=== PATIENT | male | born 1980 | race Caucasian/White ===

== ENCOUNTER 2021-12-12 21:08 | Inpatient (IN) | payer MEDICARE, MEDICAID, OTHER, SELFPAY ==
[~2021-12-12] VITALS: Ht 175.3 cm; Wt 113.4 kg
[2021-12-12 21:08] VITALS: BP 133/79
--- NOTE | 2021-12-12 21:09 | NUR ---
biba taken to bed #6
--- NOTE | 2021-12-12 21:10 | NUR ---
JOYCE FERRARO AT BEDSIDE. 5150 HOLD WRITTEN
[2021-12-12] MEDS ORDERED: ACETAMINOPHEN EXTRA STRENGTH 500 MG TAB PO ONE (21:30)
--- NOTE | 2021-12-12 21:30 | NUR ---
PT'S BELONGINGS COLLECTED AND TAKEN TO HOSPITAL SAFE BY SECURITY
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
--- NOTE | 2021-12-12 22:05 | NUR ---
Patient appears to be resting comfortably in bed. Vital Signs within normal limits. Respirations even and unlabored. PT HOB ELEVATED. PT ACTING APPROPRIATE
--- NOTE | 2021-12-12 22:10 | NUR ---
Dr. Vanegas examining patient.
[2021-12-12 22:16] LABS: BASOPHILS % (AUTO) 0.3 % (0.0-2.0); EOSINOPHILS # (AUTO) 0.1 K/uL (0-0.4); HEMATOCRIT 35.2 % (36-52); HEMOGLOBIN 11.5 g/dL (12.0-18.0); LYMPHOCYTES # (AUTO) 1.7 K/uL (2.0-11.5); LYMPHOCYTES % (AUTO) 15.7 % (20.5-51.1); MEAN CORPUSCULAR HEMOGLOBIN 28 pg (27-31); MEAN CORPUSCULAR HGB CONC 33 g/dL (33-37); MEAN CORPUSCULAR VOLUME 84.2 fL (80-94); MONOCYTES # (AUTO) 0.8 K/uL (0.8-1.0); NEUTROPHILS # (AUTO) 8.4 K/uL (1.8-7.7); PLATELET COUNT (AUTO) 486 K/uL (140-450); RED BLOOD CELL COUNT(AUTO) 4.18 MIL/uL (4.20-6.10); RED CELL DISTRIBUTION WIDTH 14.5 % (11.6-13.7)
[2021-12-12 22:27] LABS: ALBUMIN 3.5 g/dL (3.4-5.0); ASPARTATE AMINOTRANSFERASE 30 U/L (15-37); CARBON DIOXIDE 26.7 mmol/L (21-32); CHLORIDE 104 mmol/L (98-107); GFR ARICAN-AMERICAN 105 mL/min (>90); GLUCOSE 101 mg/dL (74-106); POTASSIUM 3.7 mmol/L (3.5-5.1); SODIUM SERUM 143 mmol/L (136-145); TOTAL BILIRUBIN 0.8 mg/dL (0.0-1.0); UREA NITROGEN, BLOOD 23 mg/dL (7-18)
[2021-12-12 22:33] LABS: ACETAMINOPHEN < 0.5 ug/ml (10-30); SALICYLATE < 2.8 mg/dL (2.8-20.0)
--- NOTE | 2021-12-12 23:53 | NUR ---
COLLECTED EARL AND NOVEL. HANDED TO NIKA . UNABLE TO COLLECT URINE SAMPLE. PROVIDED PT WATER
--- NOTE | 2021-12-13 | NUR ---
Patient appears to be resting comfortably in bed. eyes closed . Vital Signs within normal limits. Respirations even and unlabored.
--- NOTE | 2021-12-13 01:10 | NUR ---
PT SLEEPING IN BED. NO URINE OUTPUT YET
--- NOTE | 2021-12-13 02:20 | NUR ---
PT LYING SUPINE ON BED. HOB RAISED TO SEMI FOWLERS. PT SLEEPING WITH EYES CLOSED. NO HOMICIDA THOUGHTS AT THIS TIME.
--- NOTE | 2021-12-13 02:46 | NUR ---
PT AMBULATED TO BATHROOM WITH WALKER.
[2021-12-13 03:38] LABS: BARBITURATE, URINE NEGATIVE ng/ml (NEG <=200); BENZODIAZEPINE, URINE NEGATIVE ng/mL (NEG <=200)
[2021-12-13 03:39] LABS: CANNABINOID, URINE POSITIVE ng/mL (NEG <=50); COCAINE, URINE NEGATIVE ng/mL (NEG <=300); OPIATE, URINE NEGATIVE ng/mL (NEG <=2000); PHENCYCLIDINE SCREEN,URINE NEGATIVE ng/mL (NEG <=25)
--- NOTE | 2021-12-13 04:17 | NUR ---
pt growing increasingly agitated. pt spilled urine all over floor. pt is cursing and yelling. speaking to himself
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
[2021-12-13] MEDS ORDERED: LORazepam 2 MG/ML VIAL IM ONE (04:20)
[2021-12-13] MEDS ORDERED: HALOPERIDOL IM 5 MG/ML VIAL IM ONE (04:20)
--- NOTE | 2021-12-13 04:23 | NUR ---
pt aggresive to self. pt told dr she better take that 5150 hold off or else things are going to get bad. pt cussing at doctor. pt threatens that he is homicidal.
--- NOTE | 2021-12-13 04:27 | NUR ---
security at bedside to give shot. pt allowed nurses to give shot. pt did not put up fight.
--- NOTE | 2021-12-13 05:00 | NUR ---
PT SLEEPING QUIETLY. HOB ELEVATED. VSS. RESPIRATIONS EVEN AND UNLABORED
--- NOTE | 2021-12-13 07:05 | NUR ---
Patient appears to be resting comfortably in bed. Vital Signs within normal limits. Respirations even and unlabored.
--- NOTE | 2021-12-13 07:18 | NUR ---
Pt report given to TRIPP NAQVI. Transfer of care at this time.
--- NOTE | 2021-12-13 07:19 | NUR ---
REPORT RECEIVED FROM TRIPP LUBIN FOR PATIENT CONTINUITY OF CARE.
--- NOTE | 2021-12-13 07:30 | NUR ---
PATIENT SLEEPING AT BEDSIDE, SAFETY PRECAUTIONS PUT INTO PLACE. WILL CONTINUE TO MONITOR.
--- NOTE | 2021-12-13 08:24 | NUR ---
PT BEING EVALUATED BY TELEPSYCH AT THIS TIME.
--- NOTE | 2021-12-13 08:37 | NUR ---
PATIENT EATING BREAKFAST AT BEDSIDE.
[2021-12-13] MEDS: PERPHENAZINE 2 MG TAB PO SCH (10:03)
[2021-12-13] MEDS ORDERED: ACETAMINOPHEN 325 MG TAB PO PRN (11:05)
[2021-12-13] MEDS ORDERED: MAGNESIUM OXIDE 400 MG TAB PO PRN (11:05)
[2021-12-13] MEDS ORDERED: POTASSIUM CHLORIDE 10 MEQ TABER PO PRN (11:05)
[2021-12-13] MEDS ORDERED: ONDANSETRON 4 MG/2 ML VIAL IM/IVP PRN (11:05)
[2021-12-13] MEDS ORDERED: SODIUM PHOS / POTASSIUM PHOS 1 PKT PDR PO PRN (11:05)
[2021-12-13] MEDS ORDERED: DOCUSATE SODIUM 100 MG GELCAP PO PRN (11:05)
--- NOTE | 2021-12-13 11:13 | NUR ---
DR ANTONIO EVALUATING PATIENT AT BEDSIDE.
--- NOTE | 2021-12-13 11:20 | NUR ---
Patient will be admitted to care of DR ANTONIO. Admited to MED SURG. Will go to room 109 B. Belongings list completed. Report to THEE PRICE.
--- NOTE | 2021-12-13 11:21 | NUR ---
The patient's care was reviewed and supervised by Yashira Galvan RN.
[2021-12-13 12:16] LABS: MAGNESIUM 2.4 mg/dL (1.8-2.4); PHOSPHORUS 4.5 mg/dL (2.5-4.9)
[2021-12-13 12:39] VITALS: BP 126/82
--- NOTE | 2021-12-13 12:44 | NUR ---
DC PLANNING PATIENT IS A 41 YEAR OLD MALE ADMITTED ON 12/12/2021 AT [facility]/ED ON A 5150 HOLD DUE TO DTO AND HOMICIDAL IDEATIONS. SW ATTEMPTED TO MET WITH PATIENT TO DO ASSESSMENT, DISCUSS AND GATHER PATIENT'S COLLATERAL INFORMATION. PATIENT INITIALLY WAS AWAKE AND ALERT ABLE TO FOLLOW SOME COMMANDS; HOWEVER, UNWILLING TO PROVIDE ANY ANSWERS TO ANY QUESTIONS MADE TO HIM BY THESE CUTTING MACHINE OPERATOR. (SOME OF THE RESPONSES INCLUDE UNAPPROPRIATED, SCRAMBLE WORDS OR EVEN INCOHERENT RESPONSES, IF DISRUPTIVE THOUGHTS PROCESS IS OCCURRING WHEN HE RESPONDED. PATIENT THEN GETS EASILY CONFUSED AND IRRITATED STATED " IM TIRED IM GOING TO SLEEP NOW" DONT TALK TO ME ANYMORE " SW LEFT THE ROOM THEN AND A SITTER BY SIDE IN ROOM 109-B. SW WAS UNABLE TO COMPLETE ASSESSMENT WITH PATIENT AND WILL BE CONTACTING LUIS Handley TO SEEK FOR ASSISTANCE ON ATTEMPTING TO CONTACT ANY PATIENT'S FAMILY MEMBER SW WILL FOLLOW UP NEEDED. Addendum: 12/13/21 at 1345 by Pattie Pitts DC PLANNING SW CALL [facility] AT TO FIND STATUS ON PSCHY PLACEMENT SEARCH FOR PATIENT. SPOKE TO ART WHO STATED THAT THEIR FAX MACHINE WAS NOT WORKING SINCE 12/11/2021 THEREFORE THEY HAVE NOT RECEIVED PATIENT'S PACKET YET. ESE INFORMED THEM THAT A CLINICAL PACKET WAS SEND YESTERDAY HOWEVER; THESE CUTTING MACHINE OPERATOR WILL SEND ANOTHER ONE TODAY AND REQUESTED [employer] FAX NUMBER TO MAKE SURE THEY RECEIVED CLINICAL PACKET AND PLACEMENT SEARCH BEGINS PARAS. ART AGREED AND PROVIDED FAX NUMBERS. ESE FAXED PATIENT'S CLINICAL PACKETS AT [phone] AND WITH COMPLETED CONFIRMATION AT ABOUT 13:45. SW/CM WILL FOLLOW UP NEEDED.
--- NOTE | 2021-12-13 14:03 | NUR ---
Packet faxed to: [facility] [address] Isabel Champagne
--- NOTE | 2021-12-13 15:38 | NUR ---
PATIENT HAS BEEN SCREENED AND CATEGORIZED LOW NUTRITION RISK. PATIENT WILL BE SEEN WITHIN 7 DAYS OF ADMISSION. 12/19/[address]
[2021-12-13 16:00] VITALS: BP 132/88
--- NOTE | 2021-12-13 18:30 | NUR ---
PT SIGNED ANGIE FOR MEDICAL DOCUMENTS FROM [facility]. FAXED OVER APPROPRIATE DOCUMENTS AND AWAITING HEALTH RECORDS. WILL ENDORSE TO MANAGER UNIVERS[employer].
--- NOTE | 2021-12-13 19:30 | NUR ---
RECEIVED PATIENT FROM AM NURSE FOR CONTINUITY OF CARE,PATIENT IS STABLE
[2021-12-13 20:00] VITALS: BP 134/68
--- NOTE | 2021-12-13 21:30 | NUR ---
PATIENT REQUESTED FOR HIS MEDS IN HIS BELONGINGS, NOTIFIED MD AND SAID TO CONTINUE WITH HIS GABAPENTIN AND FLEXERIL.
[2021-12-13] MEDS ORDERED: MULT-1301 PO (21:46)
[2021-12-13] MEDS ORDERED: CYCL-711 PO (21:46)
[2021-12-13] MEDS ORDERED: ASPI-1205 PO (21:46)
[2021-12-13] MEDS ORDERED: GABA100C PO (21:46)
[2021-12-13] MEDS ORDERED: GABAPENTIN 100 MG CAP PO ONE (21:49)
[2021-12-13] MEDS: CYCLOBENZAPRINE 10 MG TAB PO PRN (23:06)
--- NOTE | 2021-12-14 | NUR ---
PATIENT SLEEPING ,BREATHING EVEN AND UNLABORED, NO DISTRESS NOTED
--- NOTE | 2021-12-14 02:00 | NUR ---
PATIENT SLEEPING,BREATHING EVEN AND UNLABORED,NO DISTRESS NOTED.
[2021-12-14 04:00] VITALS: BP 115/75
--- NOTE | 2021-12-14 04:00 | NUR ---
PATIENT RESTING QUIETLY,NO AGITATION,NO DISTRESS NOTED
--- NOTE | 2021-12-14 06:00 | NUR ---
RESTING IN BED ,NO AGITATION NOTED,BREATHING EVEN AND UNLABORED
--- NOTE | 2021-12-14 07:29 | NUR ---
ENDORSED PT TO AM NURSE FOR CONTINUITY OF CARE.PT IS STABLE
--- NOTE | 2021-12-14 07:30 | NUR ---
RECEIVED PATIENT REPORT FROM RN ANESTHESIOLOGY NURSE FOR CONTINUITY OF CARE. PT IS AOX4, ABLE TO MAKE NEEDS KNOWN. ON ROOM AIR AND NO RESPIRATORY DISTRESS NOTED. SKIN IS WARM, DRY, AND NON-INTACT. HAS CHRISTINE ON RIGHT LEG, CLOSED AND INTACT. NO DRAINAGE NOTED. IMMOBILIZER IN PLACE. PT DENIES PAIN AT THE MOMENT. SITTER AT BEDSIDE. [address] PLAN OF CARE DISCUSSED. SAFETY PRECAUTIONS IN PLACE. CALL LIGHT WITHIN REACH. WILL CONTINUE TO MONITOR.
[2021-12-14 08:00] VITALS: BP 133/72
[2021-12-14] MEDS: PANTOPRAZOLE 40 MG TABEC PO SCH (08:37)
[2021-12-14] MEDS: GABAPENTIN 100 MG CAP PO SCH ×3 (08:37→17:43)
[2021-12-14] MEDS: CYCLOBENZAPRINE 10 MG TAB PO PRN ×2 (08:38→17:43)
[2021-12-14] MEDS: PERPHENAZINE 2 MG TAB PO SCH (08:38)
--- NOTE | 2021-12-14 08:40 | NUR ---
ALL SCHEDULED MEDS GIVEN. PT IS STABLE. NO DISTRESS NOTED. WILL CONTINUE TO MONITOR.
--- NOTE | 2021-12-14 10:15 | NUR ---
INSERTED NEW 20 G IV ON LAC. SALINE FLUSHED, INTACT, AND PATENT.
[2021-12-14] MEDS: LORazepam 2 MG/ML VIAL IM/IVP PRN ×2 (10:20→19:41)
--- NOTE | 2021-12-14 10:20 | NUR ---
PATIENT COMPLAINED OF INCREASE ANXIETY AND AGITATION. ADMINISTERED ATIVAN PRN PER MD ORDER
--- NOTE | 2021-12-14 12:50 | NUR ---
ALL SCHEDULED MEDS GIVEN. PT IS STABLE. NO DISTRESS NOTED. WILL CONTINUE TO MONITOR.
[2021-12-14 16:00] VITALS: BP 124/71
[2021-12-14] MEDS: HYDROcodone/APAP 5/325 MG 1 TAB TAB PO PRN (17:44)
--- NOTE | 2021-12-14 17:50 | NUR ---
ALL SCHEDULED MEDS GIVEN. PT IS STABLE. NO DISTRESS NOTED. WILL CONTINUE TO MONITOR.
--- NOTE | 2021-12-14 19:17 | NUR ---
ENDORSED TO LEGAL FILE CLERK NURSE FOR CONTINUITY OF CARE. PT IS STABLE.
--- NOTE | 2021-12-14 19:17 | NUR ---
RECEIVE PT AWAKE , APPEARS AGITATE , TALKING TOO LOUD W/ " F" WORDS - WILL MEDICATE . IV SITE INTACT AND PATENT , ON 5149 HOLD , ON 1:1 SITTER . ASSESS ROOM FOR SAFETY . WILL CONT. TO MONITOR Addendum: 12/15/21 at 0330 by Harmony Schultz RN W/ R LEG IMMOBILIZER , W/ CHRISTINE ON IT . - WALKABLE - W/ STANDBY ASSIST .
--- NOTE | 2021-12-14 22:00 | NUR ---
AWAKE , BUT UP AND DOWN IN THE BED . ON 1: 1 SITTER .
--- NOTE | 2021-12-14 22:00 | NUR ---
JACINTO , DIRKOX4 . ANSWER QUESTION APPROPRIATELY , REMINDS HER NOT TO STAND UP BY HERSELF AND USE CALL LIGHT WHEN SHE NEEDED ANYTHING , PT. VERBALIZES UNDERSTANDING . SHE REQUESTING TO CLOSE THE DOOR BECAUSE SHE HEARS NOISE FROM NURSE'S STATION AND SHE WANTS TO HAVE REST AND SLEEP . CALL LIGHT WITHIN REACH . Addendum: 12/15/21 at 0148 by Harmony Schultz RN THE ABOVE NURSE'S NOTE IS AN ERROR ENTRY - JAVED
[2021-12-15] VITALS: BP 120/70
--- NOTE | 2021-12-15 | NUR ---
ROUNDS , C/O LEG PAIN - WILL MEDICATE , ON 1 :1 SITTER . WILL CONT. TO MONITOR .
[2021-12-15] MEDS: HYDROcodone/APAP 5/325 MG 1 TAB TAB PO PRN ×3 (00:04→16:58)
[2021-12-15] MEDS: LORazepam 2 MG/ML VIAL IM/IVP PRN ×3 (01:44→19:51)
--- NOTE | 2021-12-15 02:00 | NUR ---
SLEEPING . 1 :1 SITTER . WILL CONT. TO MONITOR .
--- NOTE | 2021-12-15 04:00 | NUR ---
SLEEPING CHEST RISE AND FALL EQUALLY . ON 1 :1 SITTER .
--- NOTE | 2021-12-15 06:00 | NUR ---
AWAKE , C/O LEG PAIN - WILL MEDICATE , ON 1:1 SITTER , REFUSED BLD. DRAW FOR AM LABS - INFORMED DR. BRANNON .
--- NOTE | 2021-12-15 07:33 | NUR ---
ENDORSED - PT - STABLE .
--- NOTE | 2021-12-15 07:47 | NUR ---
RECEIVING ENDORSE FROM PM SHIFT FOR CONTINUANT CARE; PATIENT IN STABLE CONDITION AT TIME, REST IN BED W/ NO ACUTE RESPIRATORY DISTRESS, [address] W/ SITTER PRESENT, PIV AT LAC PATENT, STAPLE AT RLE CLEAN W/O DRAINAGE. PATIENT IS ABLE TO MAKE NEEDS KNOW. WILL CONTINUE TO MONITOR
[2021-12-15] MEDS ORDERED: CRUSHER, PILL MC ONE (08:47)
[2021-12-15] MEDS: PANTOPRAZOLE 40 MG TABEC PO SCH (08:55)
[2021-12-15] MEDS: CYCLOBENZAPRINE 10 MG TAB PO PRN ×3 (08:56→16:17)
[2021-12-15] MEDS: GABAPENTIN 100 MG CAP PO SCH ×3 (08:57→16:17)
[2021-12-15] MEDS: PERPHENAZINE 2 MG TAB PO SCH (08:57)
--- NOTE | 2021-12-15 11:46 | NUR ---
ALL AM SCHEDULED MEDS GIVEN, PT TOLERATE WELL. PER PT REQUEST, ATIVAN AND FLEXERIL ALSO GIVEN. PT REST ON BED PEACEFULLY. WILL CONTINUE TO MONITOR.
--- NOTE | 2021-12-15 15:38 | NUR ---
TALKED TO TELEPSYCH SERVICES [place], [place] , AND LEFT MESSAGE FOR REQUEST RE-NEW PATIENT'S 5150 ORDER BEFORE 2129, 12/15/2021. PLEASE F/U.
[2021-12-15 16:00] VITALS: BP 135/74
--- NOTE | 2021-12-15 17:42 | NUR ---
ALL SCHEDULED PM MEDS AND PRN PAIN MEDICATION, NORCO GIVEN. PT TOLERATE WELL, REST IN BED MOST TIME DURING THE WHOLE SHIFT. TELEPSYCH SERVICES CALLED FOR RE-NEW 5150 ORDER. PLEASE F/U
--- NOTE | 2021-12-15 18:10 | NUR ---
RECEIVED CALL FROM TELEPSYCH SERVICE AND WAS NOTIFIED THAT PSYCH WILL BE HAVING A VIDEO CALL WITH THE PATIENT AT 2100
--- NOTE | 2021-12-15 19:06 | NUR ---
ENDORSE PT TO PM SHIFT FOR CONTINUANT CARE; PATIENT IN STABLE CONDITION AT TIME, REST IN BED W/ NO ACUTE RESPIRATORY DISTRESS, 5051 WILL RE-NEW BEFORE 2129 W/ SITTER PRESENT, PIV AT LAC PATENT, STAPLE AT RLE CLEAN W/O DRAINAGE. PATIENT IS ABLE TO MAKE NEEDS KNOW.
--- NOTE | 2021-12-15 19:07 | NUR ---
RECEIVED REPORT FROM ALBERT KINGSTON FOR CONTINUITY OF CARE. UPON ARRIVAL PATIENT PATIENT WAS IN ROOM LAYING DOWN ALERT AND ORIENTED X 3 WITH MOMENTS OF CONFUSION. PATIENT REQUESTED MEDICATION FOR HIS ANXIETY. PATIENT DENIES WANTING TO HARM SELF ANDF OR OTHERS. NO NOTED DISTRESS IN RESPIRATIONS. EVENA AND UNLABORED. IV SITE NOTED ON LEFT A/C 20 RODDY CLEAN AND PATENT FOR IV MEDICATIONS. PATIENT IS AMBULATORY WITH STEADY GAIT. ALL SAFETY MEASURES ARE IN [place]. BED IN LOWEST POSITION AND LOCKED. WILL CONTINUE TO MONITOR FOR SAFETY WHILE ON 5150 HOLD WITH SITTER. [email or web address]
--- NOTE | 2021-12-15 19:45 | NUR ---
SHOWING AGITATION AND ANXIETY , TALKING TOO LOUD , MOVING HIS LEGS CONTINOUSLY - WILL MEDICATE Addendum: 12/15/21 at 7 by Harmony Schultz RN V/S BP 120/65 , GA 83 , T 97.3 , RR 18 , O2 SAT 97 %
[2021-12-15 20:00] VITALS: BP 120/65
--- NOTE | 2021-12-15 21:12 | NUR ---
PER PSYCHE DOCTOR CONTINUE 515 HOLD - INFORMING [place] [employer] ABOUT THE CONTINUATION OF 5150 - MIKE GOT THE ROOM NUMBER OF THE PT .- WILL FF UP .
--- NOTE | 2021-12-15 22:00 | NUR ---
PATIENT REMAINS IN BED ASLEEP. POLICE RENEWED 5150 FOR HOMICIDAL INTENT. NO SIGNS/SYMPTOMS OF PAIN/DISTRESS. PATIENT IS BREATHING EVEN AND UNLABORED. NURSING WILL CONTINUE TO MONITOR FOR SAFETY. [email or web address]
--- NOTE | 2021-12-15 22:09 | NUR ---
RENEWED 5150 HOLD ORDER BY [facility] .
--- NOTE | 2021-12-16 00:10 | NUR ---
C/O LEG PAIN - GIVE NARCO / TAB 1 TAB . P.O FOR PAIN - BP 122/68/ IN 74 , RR 18 , O2 SAT 97 %. WILL CONT. TO MONITOR .ON 1 :1 SITTER .
--- NOTE | 2021-12-16 00:18 | NUR ---
At this time there are still no vacancy at any of the designated facilities .
--- NOTE | 2021-12-16 03:00 | NUR ---
PULLED OUT THE IV NEEDLE - NEEDLE FOUND IN THE FLOOR - NEEDLE INTACT , MIN. BLEEDING - REFUSE IV RE INSERTION . WILL CONT. TO MONITOR .
[2021-12-16 04:00] VITALS: BP 114/71
--- NOTE | 2021-12-16 05:12 | NUR ---
PATIENT IS STILL RESTLESS. FLINGING LEGS EVERY WHERE, PULLING OFF LEADS TO DEPARTMENT OPERATIONS MANAGER, AND SLURRING WORDS TO INTERNAL AUDIO STIMULI. PATIENT REMAINS IN BILATERAL UPPER RESTRAINTS FOR SAFETY. NURSING NOTED IV HAS BEEN TAKEN OUT AGAIN FROM PATIENT CONSTANT RESTLESS MOVEMENT. VITAL SIGNS WERE TAKEN WITH MULTIPLE ATTEMPTS TO KICK NURSE. NURSING WILL CONTINUE TO MONITOR FOR SAFETY. [email or web address] Addendum: 12/16/21 at 0522 by Janessa Almazan LVN WRONG PATIENT ENTRY
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
--- NOTE | 2021-12-16 06:00 | NUR ---
PT JUST WOKE UP - HATEFUL REPEATED SAYING "F " WORDS - AND TALKING TO HIMSELF - WILL MEDICATE W/ ATIVAN / IM .
[2021-12-16] MEDS: LORazepam 2 MG/ML VIAL IM/IVP PRN ×2 (06:03→13:02)
--- NOTE | 2021-12-16 07:10 | NUR ---
RECEIVED REPORT FROM ORIENTAL MEDICINE PRACTITIONER NURSE FOR CONTINUITY OF CARE. PT ASLEEP IN BED. BREATHING SYMMETRICAL. FLACC O. SITTER PROVIDED. ALL SAFETY MEASURES IN PLACE.
--- NOTE | 2021-12-16 07:16 | NUR ---
ENDORSED PATIENT TO MARIANO REEVES FOR CONTINUITY OF CARE. PATIENT IS STABLE IN BED ASLEEP. BREATHING ROOM AIR EVEN BREATHS UNLABORED. [email or web address]
--- NOTE | 2021-12-16 07:20 | NUR ---
ENDORSED - PT - STABLE . INFORMED DR. BRANNON PT REFUSED BLD. DRAW FOR AM LABS .
[2021-12-16] MEDS: PERPHENAZINE 2 MG TAB PO SCH ×2 (08:19→17:04)
[2021-12-16] MEDS: PANTOPRAZOLE 40 MG TABEC PO SCH (08:19)
[2021-12-16] MEDS: GABAPENTIN 100 MG CAP PO SCH ×3 (08:19→17:04)
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
--- NOTE | 2021-12-16 11:00 | NUR ---
PT DENIES THOUGHTS OF HURTING OTHER PEOPLE OR SELF. WILL CONTINUE TO MONITOR.
[2021-12-16 12:00] VITALS: BP 125/70
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
--- NOTE | 2021-12-16 13:02 | NUR ---
PT AWAKE IN BED, ALERT. BREATHING SYMMETRICAL ON ROOM AIR. FLACC O. PRN IM ATIVAN GIVEN. APPROACHED PT CALMLY AND UNHURRIEDLY AT ALL TIMES.
--- NOTE | 2021-12-16 15:14 | NUR ---
DC PLANNING: CALLED [facility] [phone] SPOKE WITH ADMIN STATED THEY HAVE BED AND REQUESTED ALL PAPERWORK TO BE FAXED TO [phone]. CM TO FOLLOW Addendum: 12/16/21 at 1551 by Minerva Borrego RN DC PLANNING: RECEIVED A CALL FROM COURTNEY AT [facility] STATED THEY ACCEPTED PATIENT CAN GO TO UNIT [address] ROBERTSON # TO GIVE REPORT [phone] ARRANGED TRANSPORT WITH [facility]APERY [facility]KER TIME 5 PM NOTIFIED CHARLIE KINGSTON. CM TO FOLLOW
--- NOTE | 2021-12-16 16:15 | NUR ---
SPOKE WITH CM PT FOR TRANSFER TO [facility], PT MADE AWARE.
--- NOTE | 2021-12-16 17:00 | NUR ---
SPOKE WITH FLORIDALMA TO GIVE REPORT, STATED CONCERN FOR PT'S IMMOBILIZER. STATED SHE IS WAITING FOR DON'S DECISION. MADE HER AWARE CM SPOKE WITH LAISHA AND DIDN'T STATE ANY CONCERN FOR THE IMMOBILIZER. FLORIDALMA STATED THEY WILL CALL BACK.
--- NOTE | 2021-12-16 17:20 | NUR ---
PT SERVED WITH [facility]. SPOKE WITH LAISHA REGARDING PT'S IMMOBILIZER, WILL LET US KNOW IF THEY WILL ACCEPT PT.
--- NOTE | 2021-12-16 17:49 | NUR ---
FOLLOW UP CALL MADE TO [facility] AND SPOKE WITH FLORIDALMA STATED THEY WILL ACCEPT PT. [facility] ALREADY HERE TO UPHOLSTERY HANDLER PT.
--- NOTE | 2021-12-16 17:56 | NUR ---
PT DISCHARGED TO [facility], PICKED UP BY [facility] VIA GURNEY WITH BELONGINGS AND PAPERWORKS. PT IN STABLE CONDITION.
[2021-12-16] MEDS ORDERED: DOXEPIN 25 MG CAP PO SCH (21:00)
[2021-12-17] MEDS ORDERED: PERPHENAZINE 2 MG TAB PO SCH (09:00)
== END 2021-12-16 18:00 | DRG 92 ==
LOC: MED 21:08 → MTU 12-13 11:05
PROVIDERS: ADMIT Hospitalist; ATTEND Hospitalist
DX: G92.9 Unspecified toxic encephalopathy (principal); F20.0 Paranoid schizophrenia; Z20.822 Contact with and (suspected) exposure to COVID-19; R45.850 Homicidal ideations; F15.90 Other stimulant use, unspecified, uncomplicated; F12.90 Cannabis use, unspecified, uncomplicated; Z71.51 Drug abuse counseling and surveillance of drug abuser
CPT/HCPCS: 36415; 80053; 80305; 83735; 84100; 85025; 87081; 93970; 96372; 99285; G0480; G0482; J1630; J2060; Q0092; U0003